=== PATIENT | female | born 1940 | race Caucasian/White ===

== ENCOUNTER 2018-09-01 07:48 | Day surgery (SDC) | payer MEDICARE, BC ==
[2018-09-01] MEDS ORDERED: PROPOFOL 500 MG/50 ML EMU IV ONE (08:09)
[2018-09-01 11:38] VITALS: BP 138/60; PULSE 64; RESP 20; TEMP 97; O2SAT 98
== END 2018-09-01 10:30 | disposition home or self-care (01) | DRG 951 ==
LOC: SURG 07:48
PROVIDERS: ATTEND Surgery
DX: Z12.11 Encounter for screening for malignant neoplasm of colon (principal); K57.32 Diverticulitis of large intestine without perforation or abscess without bleeding
CPT/HCPCS: J2001; J2704